=== PATIENT | female | born 1955 ===

== ENCOUNTER → 2019-01-10 | Outpatient (CLI) | payer MEDICARE, OTHER ==
--- NOTE | 2019-01-10 17:07 | KCIC ---
Examination: Ultrasound thyroid HISTORY: History of thyroid nodules COMPARISON: None available. Findings: The right lobe of thyroid gland measures 4.6 x 2.8 x 3.0 cm. The left lobe of the thyroid gland measures 3.7 x 1.4 x 1.9 cm. There is a solid complex nodule identified in the right lobe of the thyroid gland measuring 3.7 x 3.1 x 2.5 cm with vascular flow within. There is a complex solid nodule identified in the left upper pole of the thyroid gland measuring 1.1 x 1.2 cm. A small calcification identified in the right lobe of thyroid gland. The isthmus measures 2.3 mm in AP dimension. IMPRESSION: 1. Solid complex appearing nodule identified in the right lobe of thyroid gland measuring 3.7 cm. Recommend fine needle aspiration. 2. 1.1 cm solid nodule identified in the left lower thyroid gland. Follow-up examination is recommended Electronically signed by: Andrzej Cruz MD (01/10/2019 5:04 PM) [id number]
--- NOTE | 2019-01-10 17:15 | KCIC ---
Indication: Postmenopausal screening for osteoporosis. COMPARISON: None available. Bone Density: -BMD: (g/cm2) - AP Spine Total (L1-L4).......... 1.580. - Total left Hip................. 1.114. T-Score: - AP Spine Total (L1-L4)......... 4.8. - Total left Hip................. 1.4. Z-Score: - AP Spine Total (L1-L4).......... 6.6. - Total left Hip................. 2.6. World Health Organization criteria for BMD interpretation classify patients as Normal (T-score at or above -1.0), Osteopenic (T-score between -1.0 and -2.5), or Osteoporotic (T-score at or below -2.5). Impression: 1. AP Spine Total L1-L4--- normal. 2. Total left Hip--- normal. Electronically signed by: Mateus Ortega MD (01/10/2019 5:13 PM) [place] [id number]
== END | disposition home or self-care (01) ==
LOC: KCIC US 14:32
PROVIDERS: ATTEND Nurse Practitioner Family
DX: Z13.820 Encounter for screening for osteoporosis (principal); E04.2 Nontoxic multinodular goiter; Z78.0 Asymptomatic menopausal state
CPT/HCPCS: 76536; 77080